=== PATIENT | female | born 1980 | race Caucasian/White ===

== ENCOUNTER → 2018-06-07 | Outpatient (REF) ==
[~2018-06-07] MED LIST: BCP TD; CYMBALTA 30MG30 MG PO; KLONOPIN 0.5MG0.5 MG PO; NEURONTIN100 MG/CAP PO; PHENERGAN 25 TA25 MG PO; PRILOSEC 20MG20 MG PO; PROTONIX 40MG T40 MG PO; PROZAC40 MG PO; SEROQUEL XR50 MG PO; SEROQUEL50 MG PO; UNABLE
== END ==
LOC: ZLAB.WCH 16:06
DX: Z01.89 Encounter for other specified special examinations (principal)